=== PATIENT | female | born 1950 | race Caucasian/White ===

== ENCOUNTER → 2021-05-31 | Outpatient (CLI) | payer MEDICARE, MEDICAID ==
[2021-05-31 12:59] LABS: CALCIUM 8.1 mg/dL (8.4-10.2); CREATININE, serum 1.34 mg/dL (0.57-1.11); POTASSIUM 4.4 mmol/L (3.5-4.5)
== END ==
LOC: ZCOL.LAB 12:29
PROVIDERS: Family Medicine
DX: E11.22 Type 2 diabetes mellitus with diabetic chronic kidney disease (principal)

== ENCOUNTER → 2021-07-26 | Outpatient (CLI) | payer MEDICARE, MEDICAID ==
[2021-07-26 12:18] LABS: COLLECTION METHOD CATHETER
[2021-07-26 12:23] LABS: ALBUMIN 2.9 gm/dL (3.4-4.8); BILIRUBIN,TOTAL 0.7 mg/dL (0.2-1.2); CALCIUM 8.4 mg/dL (8.4-10.2); CREATININE, serum 1.25 mg/dL (0.57-1.11); TOTAL PROTEIN 6.7 gm/dL (6.2-8.1)
[2021-07-26 12:24] LABS: MUCOUS Present (NOT PRESENT); PH 5 (5-8); SQUAMOUS EPITHELIAL 0-2 /hpf (0-10); URINE APPEARANCE Cloudy (CLEAR/HAZY); URINE BACTERIA Many /hpf (NONE SEEN); URINE BILIRUBIN Negative (NEGATIVE); URINE BLOOD Negative (NEGATIVE); URINE COLOR Yellow (YELLOW); URINE GLUCOSE Negative (NEGATIVE); URINE KETONE Negative (NEGATIVE); URINE LEUKOCYTE ESTERASE 3+ (NEGATIVE); URINE NITRATE Negative (NEGATIVE); URINE PROTEIN(semi-quant) Negative (NEGATIVE); URINE UROBILINOGEN Negative (NEGATIVE); URINE WBC >50 /hpf (0-2)
== END ==
LOC: ZCOL.LAB 11:51
PROVIDERS: Family Medicine
DX: N11.1 Chronic obstructive pyelonephritis (principal); N39.0 Urinary tract infection, site not specified

== ENCOUNTER 2021-10-10 00:09 | Inpatient (IN) | payer MEDICARE, MEDICAID ==
[~2021-10-10] VITALS: Ht 152.4 cm; Wt 145.6 kg
[2021-10-10] VITALS (7 sets, daily range): BP systolic 119–154; BP diastolic 58–87; PULSE 64–82; TEMP 97.6–98
[2021-10-10 01:31] LABS: BASO % 0.4 % (0.0-2.0); EOS # 0.1 K/mm3 (0.0-0.7); EOS % 0.8 % (0.0-4.0); GRAN # 8.1 K/mm3 (1.4-6.5); GRAN % 84.3 % (42.2-75.2); HEMATOCRIT 35.5 % (37.0-47.0); HEMOGLOBIN 11.3 g/dl (12.5-16.0); LYMPH # 0.7 K/mm3 (1.2-3.4); LYMPH % 7.6 % (20.0-51.0); MEAN CELL VOLUME 90 fl (80.0-100.0); MEAN CORPUSCULAR HEMOGLOBIN 29 pg (27-31); MEAN CORPUSCULAR HGB CONC 32 g/dl (33.0-37.0); MEAN PLATELET VOLUME 10.5 fl (7.4-10.4); MONO # 0.6 K/mm3 (0.1-0.6); MONO % 6.5 % (1.7-9.3); PLATELET COUNT 237 K/mm3 (130-400); RED BLOOD COUNT 3.95 M/mm3 (4.10-5.30); REDCELL DISTRIBUTION WIDTH-CV 12.5 % (11.5-14.5)
[2021-10-10 01:36] LABS: ALBUMIN 2.5 gm/dL (3.4-4.8); BILIRUBIN,TOTAL 0.9 mg/dL (0.2-1.2); CALCIUM 8.5 mg/dL (8.4-10.2); CREATININE, serum 1.46 mg/dL (0.57-1.11); TOTAL PROTEIN 6.4 gm/dL (6.2-8.1)
[2021-10-10 02:11] LABS: C-REACTIVE PROTEIN 4.59 mg/dL (0.00-0.50); CREATINE KINASE 39 U/L (29-168); LACTATE DEHYDROGENASE 158 U/L (125-220); MAGNESIUM 1.6 mg/dL (1.6-2.6)
[2021-10-10 02:21] LABS: INR 1.1 (0.8-3.0); PROTHROMBIN TIME 13.1 SECONDS (9.7-12.8)
[2021-10-10 02:25] LABS: TROPONIN-I < 0.010 ng/mL (0.00-0.033)
[2021-10-10] MEDS ORDERED: ASPIRIN 81M81 MG/TA2 PO (02:44)
[2021-10-10] MEDS ORDERED: CRANBERRY450 MG PO (02:44)
[2021-10-10] MEDS ORDERED: SYNTHROID0.075 MG/T PO (02:45)
[2021-10-10] MEDS ORDERED: LEXAPRO 10MG10 MG PO (02:45)
[2021-10-10] MEDS ORDERED: MACROBID 1100 MG/CAP PO (02:46)
[2021-10-10] MEDS ORDERED: MIRALAX PA17 GM/Dose PO (02:46)
[2021-10-10] MEDS ORDERED: FLOMAX 0.40.4 MG/CAP PO (02:46)
[2021-10-10] MEDS ORDERED: VITAMIN C500 MG PO (02:47)
[2021-10-10] MEDS ORDERED: LANTUS100 U/ML SQ (02:48)
[2021-10-10] MEDS ORDERED: NOVOLOG FLEX100 U/ML SQ ×2 (02:49)
[2021-10-10] MEDS ORDERED: VICTOZA6 MG/ML SQ (02:49)
[2021-10-10] MEDS ORDERED: NYSTATIN POWDER15 GM TOP (02:50)
[2021-10-10] MEDS ORDERED: TYLENOL 325MG325 MG PO (02:50)
[2021-10-10 03:08] LABS: ARTERIAL BLD GAS O2 SATURATION 97.1 % (92-100); ARTERIAL BLD GAS TCO2 CT 25.7; ARTERIAL BLOOD GAS BASE EXCESS -1.4 (-2-2); ARTERIAL BLOOD GAS HCO3 24.3 meq/L (22-26); ARTERIAL BLOOD GAS PO2 100.3 mmHg (80-100); ARTERIAL BLOOD GAS pH 7.35 (7.35-7.45)
--- NOTE | 2021-10-10 07:10 | NUR ---
pt admitted to room 305 per cart from ED, on 2L O2 per NC, unable to assist with transfer to bed, slide board used. purewick placed for urinary incontinence. IVF and doxycycline infusing per PIV in RW, site infiltrated, forearm with +2 edema, site dc'd, new site placed above infiltrate site on 2nd attempt, pt able to answer simple yes no questions, cooperative, no N/V reported at this time. afebrile after tylenol supp given in ED. med rec done using MI paperwork, oriented to room and plan of care.
--- NOTE | 2021-10-10 09:40 | NUR ---
Internal Salesperson contacted patient's daughter, Leonela (ph#[phone]) to discuss discharge planning. Patient lives at [facility] and Leonela advised patient was at [facility] for about 5 years, however due to their low staffing, patient was moved to [facility]. Leonela is unsure who patient's PCP is. Patient does not have Advance Directives and Leonela advised her next of kin are her three children. Leonela, Suyapa Chan, and Dilcia Bryson. Leonela advised she lives in [place], Dilcia lives in [place], and Suyapa is a "junkie" and is unsure how to contact her. Plan will be for patient to return to [facility] at time of discharge. STEPHEN contacted Alexa at [facility] and faxed clinical updates. SW also inquired about DPOA-HC. Discharge Plan: [facility]
--- NOTE | 2021-10-10 10:23 | NUR ---
Alexa at [facility] advised patient does not have Advance Directives.
[2021-10-10 17:06] LABS: COLLECTION METHOD CATHETER
[2021-10-10 17:24] LABS: PH 9 (5-8); URINE APPEARANCE Cloudy (CLEAR/HAZY); URINE BACTERIA None Seen /hpf (NONE SEEN); URINE BLOOD Negative (NEGATIVE); URINE COLOR Yellow (YELLOW); URINE GLUCOSE 3+ (NEGATIVE); URINE KETONE Trace (NEGATIVE); URINE NITRATE Negative (NEGATIVE); URINE PROTEIN(semi-quant) 2+ (NEGATIVE); URINE RBC 20-50 /hpf (0-2); URINE TRIPLE PHOSPHATE CRYSTAL Present (NOT PRESENT); URINE UROBILINOGEN Negative (NEGATIVE)
--- NOTE | 2021-10-10 23:25 | NUR ---
Pt alert and partially oriented. Pt takes time to think and respond to questions, conversations do not always make sense. Pt does not appear interested in education. Follows commands. Pt incontinent of bowel and bladder. Pt does not report any pain at this time, denies pain when asked. Pt denies chest pain/SOB. Pt currently on room air, satting WNL. Pt tolerating PO. Tolerates pills one at a time with water. Pt is unable to make significant independent moves within the bed. Turning pt every 2 hours and providing frequent incontinent care. Shift assessment performed. Medications administered per orders and education provided. VS stable. Pt on room air. Afebrile. Non-productive cough noted. Pt continuing with IV fluids and IV antibx per orders. No significant skin issues noted. Frequently applying barrier cream and powder to prevent wound development. Fall precautions in place. Assessing neuro checks q4hr. Pt does not report any questions at this time. Bed low and locked, call brown within reach. No new concerns at this time.
[2021-10-11 04:04] VITALS: BP 116/47; PULSE 62; TEMP 97.8
--- NOTE | 2021-10-11 05:30 | NUR ---
No adverse events overnight. Pt alert and partially oriented, follows commands. Continuing with IV fluids and IV antibx per orders. Q4 neuro assessments continued. Pt incontinent of bowel and bladder, adequate urine output overnight. VS stable. Satting WNL on room air. Afebrile. Turning q2hr. Providing frequent incontinent care. Pt tolerating PO. Fall precautions in place. Bed low and locked, call brown within reach. Pt does not report any questions at this time, no new concerns at this time.
[2021-10-11 06:54] LABS: BASO % 0.2 % (0.0-2.0); GRAN # 6.6 K/mm3 (1.4-6.5); GRAN % 74.8 % (42.2-75.2); HEMOGLOBIN 11.5 g/dl (12.5-16.0); LYMPH # 1.2 K/mm3 (1.2-3.4); LYMPH % 13.7 % (20.0-51.0); MEAN CELL VOLUME 90 fl (80.0-100.0); MEAN CORPUSCULAR HEMOGLOBIN 29 pg (27-31); MEAN CORPUSCULAR HGB CONC 32 g/dl (33.0-37.0); MEAN PLATELET VOLUME 11.3 fl (7.4-10.4); MONO % 10.8 % (1.7-9.3); PLATELET COUNT 233 K/mm3 (130-400); RED BLOOD COUNT 3.97 M/mm3 (4.10-5.30); REDCELL DISTRIBUTION WIDTH-CV 12.3 % (11.5-14.5)
[2021-10-11 07:11] LABS: ALBUMIN 2.4 gm/dL (3.4-4.8); BILIRUBIN,TOTAL 0.3 mg/dL (0.2-1.2); CALCIUM 8.2 mg/dL (8.4-10.2); CREATININE, serum 1.36 mg/dL (0.57-1.11); HEMATOCRIT 35.7 % (37.0-47.0); TOTAL PROTEIN 6.5 gm/dL (6.2-8.1)
--- NOTE | 2021-10-11 07:45 | NUR ---
PT DOING FINE THIS MORNING, VSS, DENIES COMPLAINTS,ALERT BUT FORGETFUL, SOME CONFUSION NOTED.
[2021-10-11 08:28] VITALS: BP 119/59; PULSE 65; TEMP 98
[2021-10-11 12:00] VITALS: BP 123/65; PULSE 65; TEMP 97.9
--- NOTE | 2021-10-11 15:27 | NUR ---
Assisted Living Coordinator faxed clinical updates to [facility].
[2021-10-11 16:00] VITALS: BP 131/95; PULSE 76; TEMP 98.1
--- NOTE | 2021-10-11 18:18 | NUR ---
PT HAD A FAIR DAY, VSS, ALERT WITH PARTIAL ORIENTATION AND CONFUSION, PT PULLING OFF tele AND IV X2 SINCE MORNING UNABLE TO COMPREHEND MOST OF THE CONVERSATION/FORGETFUL.DUE MEDICATION GIVEN, NO ADVERSE EFFECTS NOTED.COUGHING BUT NO SPUTUM DUE TO PATIENT MENTAL STATUS.
[2021-10-11 19:27] VITALS: BP 109/73; PULSE 70; TEMP 98.4
[2021-10-11 23:17] VITALS: BP 132/88; PULSE 71; TEMP 97.8
--- NOTE | 2021-10-12 01:01 | NUR ---
Pt alert and paritally oriented. Pt takes time to answer questions when asked. Pt able to state name, but states she is at home. Follows commands. Q4 neuro assessments continuing. Pt incontinent of bowel and bladder. Frequent incontinent care provided and pt turned q2hr. Pt denies pain/SOB. Pt had pulled out multiple IV's during dayshift and then pulled out another IV this evening. A new PIV was started in the right AC. Pt continued to attempt to pull the IV out. Pt also continued to pull off the telemetry cords. Pt was educated multiple times on importance/purpose of IV and accepted, but then would attempt to pull the IV out again later on. Pt was given coloring pages and activities for distraction, but the pt would continue to forget and attempt to remove the IV. Soft mits have been placed on the pt's hands to stop the pt from pulling out her IV site. IV fluids and IV antibx continue per orders. No significant skin issues noted. Pt does have some discoloration of the BLE. Shift assessment performed. Medications administered per orders and education provided. binder technician remains on. Fall precautions are in place. VS stable. Pt satting WNL on room air. Afebrile. Pt has a non-productive cough. Tolerating PO. Isolation precautions enforced. Pt does not report any questions at this time. Bed locked and low, call brown within reach. No concerns at this time.
[2021-10-12 03:43] VITALS: BP 149/72; PULSE 58; TEMP 97.4
--- NOTE | 2021-10-12 06:06 | NUR ---
No adverse events overnight. IV fluids and IV antibx continued overnight. Pt alert, partially oriented, follows commands. Soft mitts remain on hands to prevent the pt from pulling out her IV. Adequate urine output overnight. Pt tolerating PO. Frequent nourishment offered. Frequent incontinent care provided and turning pt q2hr. VS stable. On room air. Afebrile. monitor technician on. Fall precautions in place. Bed low and locked, call brown within reach. No new concerns at this time.
[2021-10-12 06:26] LABS: BASO % 0.4 % (0.0-2.0); EOS % 0.1 % (0.0-4.0); GRAN % 69.7 % (42.2-75.2); HEMOGLOBIN 11.5 g/dl (12.5-16.0); LYMPH # 1.7 K/mm3 (1.2-3.4); MEAN CELL VOLUME 90 fl (80.0-100.0); MEAN CORPUSCULAR HEMOGLOBIN 29 pg (27-31); MEAN CORPUSCULAR HGB CONC 32 g/dl (33.0-37.0); MEAN PLATELET VOLUME 11.7 fl (7.4-10.4); MONO # 0.8 K/mm3 (0.1-0.6); MONO % 9.3 % (1.7-9.3); PLATELET COUNT 235 K/mm3 (130-400); RED BLOOD COUNT 3.97 M/mm3 (4.10-5.30); REDCELL DISTRIBUTION WIDTH-CV 12.4 % (11.5-14.5)
[2021-10-12 06:29] LABS: HEMATOCRIT 35.7 % (37.0-47.0)
[2021-10-12 06:45] LABS: ALBUMIN 2.5 gm/dL (3.4-4.8); BILIRUBIN,TOTAL 0.2 mg/dL (0.2-1.2); CALCIUM 8.2 mg/dL (8.4-10.2); CREATININE, serum 1.26 mg/dL (0.57-1.11); POTASSIUM 3.9 mmol/L (3.5-4.5); TOTAL PROTEIN 6.5 gm/dL (6.2-8.1)
[2021-10-12 08:10] VITALS: BP 154/84; PULSE 70; TEMP 97.2
--- NOTE | 2021-10-12 11:23 | NUR ---
STEPHEN contacted [facility] for pick out hand and they advised STEPHEN that they did not have transportation today. To call back tomorrow.
[2021-10-12 11:58] VITALS: BP 154/60; PULSE 60; TEMP 97.5
--- NOTE | 2021-10-12 13:26 | NUR ---
PATIENT ON TELE tachycardia of 140b/min noted, pt denies any complaints, no and sign and symptoms noted, pt sitting on bed and taking her lunch during this time. Dr Paula notified of the findings, metoprolol 5mg iv prescribed and EKG ordered. before metoprolol was administered PULSE was noted to be within 70-75 dr valiente was notified of the new findings, and said to hold the metoprolol until the EKG was done. metoprolol not administered at this time.
[2021-10-12 16:30] VITALS: BP 144/58; PULSE 63; TEMP 97.9
--- NOTE | 2021-10-12 17:44 | NUR ---
pt had a good day, vs stable, no adverse reaction noted, alert with some partial disorientation, tachycardia noted around mid day but now resolved.ekg done.due medication given as prescribed denies any complaints.
[2021-10-12 20:18] VITALS: BP 150/59; PULSE 59; TEMP 97.2
[2021-10-13] VITALS (7 sets, daily range): BP systolic 128–157; BP diastolic 40–74; PULSE 55–64; TEMP 97.2–97.8
--- NOTE | 2021-10-13 00:53 | NUR ---
Pt alert, partially oriented. States she thinks she is at an apartment. Pt has soft mitts applied to the hands. Pt continues to attempt to pull of mitts and pull out her IV. Educated pt on purpose and importance of the IV and IV fluids. Providing frequent nourishment to pt. Pt voiding adequately, incontinent of bowel and bladder. Pt's bottom is slightly reddened. Barrier cream applied, pt turned q2hr, and frequent incontinent care provided. Pt denies pain at this time. On room air. Afebrile. BP stable. HR currently in the upper 50's-60's. Non-productive cough noted. Pt calm and follows commands. Tolerates PO. Q4 neuro assessments continuing. Shift assessment performed. Medications administered per orders and education provided. Fall precautions in place. Isolation precautions enforced. IV fluids and IV antibx continuing per orders. Pt does not report any questions at this time. Bed low and locked, call brown within reach. No new concerns at this time.
[2021-10-13 06:27] LABS: BASO % 0.1 % (0.0-2.0); GRAN # 6.9 K/mm3 (1.4-6.5); GRAN % 73.8 % (42.2-75.2); HEMOGLOBIN 11.3 g/dl (12.5-16.0); LYMPH # 1.6 K/mm3 (1.2-3.4); LYMPH % 17.5 % (20.0-51.0); MEAN CELL VOLUME 89 fl (80.0-100.0); MEAN CORPUSCULAR HEMOGLOBIN 29 pg (27-31); MEAN CORPUSCULAR HGB CONC 32 g/dl (33.0-37.0); MEAN PLATELET VOLUME 11.3 fl (7.4-10.4); MONO # 0.7 K/mm3 (0.1-0.6); MONO % 7.9 % (1.7-9.3); PLATELET COUNT 221 K/mm3 (130-400); RED BLOOD COUNT 3.94 M/mm3 (4.10-5.30); REDCELL DISTRIBUTION WIDTH-CV 12.2 % (11.5-14.5)
[2021-10-13 06:37] LABS: HEMATOCRIT 35.1 % (37.0-47.0)
[2021-10-13 06:44] LABS: ALBUMIN 2.4 gm/dL (3.4-4.8); BILIRUBIN,TOTAL 0.2 mg/dL (0.2-1.2); CALCIUM 8.1 mg/dL (8.4-10.2); CREATININE, serum 1.13 mg/dL (0.57-1.11); POTASSIUM 3.9 mmol/L (3.5-4.5); TOTAL PROTEIN 6.2 gm/dL (6.2-8.1)
--- NOTE | 2021-10-13 07:19 | NUR ---
No adverse events overnight. Pt alert and paritally oriented. On room air. Afebrile. Incontinent of bowel and bladder. Adequte urine output overnight. Frequent incontinent care provided, turning pt Q2hr. Neuro checks assessed. IV fluids and IV antibx continued overnight. Pt has soft mitts on hands, frequent nourishment offered. Tolerating PO. Bed low and locked, call brown within reach. No concerns at this time.
--- NOTE | 2021-10-13 07:58 | NUR ---
PT SLEEPING DURING THE BEDSIDE REPORT.
--- NOTE | 2021-10-13 18:21 | NUR ---
pt had a calm day, alert with disortation, due meds given, no adverse reaction noted. vs stable, with a puric draining clear urine.ivf discontinued today.
--- NOTE | 2021-10-13 20:30 | NUR ---
Initial shift assessment done- confused, has been resting, now would like a sandwich- Tele on, Purewick on- draining rick urine, mittens on so not pulling at IV site-- pleasant,cooperative, VSS
[2021-10-14 03:49] VITALS: BP 157/85; PULSE 71; TEMP 97.5
--- NOTE | 2021-10-14 06:00 | NUR ---
Did sleep ok last night- VSS, Did have total bed change during the night when Purewick became disconnected- new Purewick applied, working well, O2 sats 99% RA,
[2021-10-14 06:52] LABS: BASO % 0.2 % (0.0-2.0); EOS % 0.2 % (0.0-4.0); GRAN # 7.4 K/mm3 (1.4-6.5); HEMOGLOBIN 11.8 g/dl (12.5-16.0); LYMPH # 2.3 K/mm3 (1.2-3.4); LYMPH % 21.4 % (20.0-51.0); MEAN CELL VOLUME 88 fl (80.0-100.0); MEAN CORPUSCULAR HEMOGLOBIN 29 pg (27-31); MEAN CORPUSCULAR HGB CONC 33 g/dl (33.0-37.0); MEAN PLATELET VOLUME 11.1 fl (7.4-10.4); MONO # 0.8 K/mm3 (0.1-0.6); MONO % 7.9 % (1.7-9.3); PLATELET COUNT 233 K/mm3 (130-400); REDCELL DISTRIBUTION WIDTH-CV 12.3 % (11.5-14.5)
[2021-10-14 06:57] LABS: HEMATOCRIT 36.1 % (37.0-47.0)
[2021-10-14 07:11] LABS: ALBUMIN 2.5 gm/dL (3.4-4.8); BILIRUBIN,TOTAL 0.3 mg/dL (0.2-1.2); CALCIUM 8.2 mg/dL (8.4-10.2); CREATININE, serum 1.15 mg/dL (0.57-1.11); POTASSIUM 3.9 mmol/L (3.5-4.5); TOTAL PROTEIN 6.5 gm/dL (6.2-8.1)
[2021-10-14 07:52] VITALS: BP 152/53; PULSE 57; TEMP 97.9
[2021-10-14] MEDS ORDERED: DECADRON6 MG PO (08:09)
[2021-10-14] MEDS ORDERED: DOXYCYCLINE HY100 MG PO (08:14)
[2021-10-14] MEDS ORDERED: OMNICEF 300MG300 MG PO (08:15)
--- NOTE | 2021-10-14 10:55 | NUR ---
Shift assessment preformed. Scheduled medications given. VSS. Patient Alert but only paritially oriented. Patient denies any pain, discomfort, SOA, or further needs at this time. Call light in reach. Fall precautions in place.
[2021-10-14 11:17] VITALS: BP 121/94; PULSE 71; TEMP 97.7
--- NOTE | 2021-10-14 11:38 | NUR ---
The hospitalist is ready to discharge the patient today. STEPHEN notified Alexa at [facility]. [facility] requests LTC orders and they set up transportation for 1300. STEPHEN notified the hospitalist, RN, and the patient's daughter (Leonela). Leonela is in agreement to the plan. STEPHEN read the IM form outloud to Leonela over the phone. Leonela verbalized understanding and of agreement to discharge today. She gave STEPHEN approval to sign the form on her behalf. The patient is to discharge today, 10/14, back to [facility] for long-term care. No additional needs at this time.
[2021-10-14 12:40] VITALS: BP 121/94; PULSE 71; TEMP 97.7
--- NOTE | 2021-10-14 13:37 | NUR ---
Alexa, at [facility], reports that the special wheelchair they would use to transport the patient, does not fit in the van they have. They are requesting an ambulance transfer. STEPHEN updated the patient's daughter, Leonela. Leonela is in agreement to this and gave STEPHEN approval to sign the EMS consent form on her behalf. [facility] transport was set up at 1400. STEPHEN updated the RN.
--- NOTE | 2021-10-14 14:24 | NUR ---
Patient deemed fit for discharge back to [facility]. IV DC'd, catheter intact, no signs of phlebitis. VSS. Patient Alert, but only partially oriented. Remainder of neuro assessment WNL. Patient denies any pain, discomfort, SOA, or further needs at this time. Patient escorted from [facility] by EMS, report called to RN at [facility].
== END 2021-10-14 14:26 | DRG 177 ==
LOC: COL.ER 00:09 → MEDICAL 01:49
PROVIDERS: Emergency Medicine; Nurse Practitioner Family; ADMIT Internal Medicine
PROC: XW033E5 Introduction of Remdesivir Anti-infective into Peripheral Vein, Percutaneous Approach, New Technology Group 5 (ICD-10-PCS; principal; 2021-10-10)
DX: U07.1 COVID-19 (principal); J12.82 Pneumonia due to coronavirus disease 2019; J96.01 Acute respiratory failure with hypoxia; G93.40 Encephalopathy, unspecified; N11.1 Chronic obstructive pyelonephritis; N18.4 Chronic kidney disease, stage 4 (severe); E87.2 Acidosis; N17.9 Acute kidney failure, unspecified; Z68.44 Body mass index [BMI] 60.0-69.9, adult; I12.9 Hypertensive chronic kidney disease with stage 1 through stage 4 chronic kidney disease, or unspecified chronic kidney disease; E11.22 Type 2 diabetes mellitus with diabetic chronic kidney disease; E66.01 Morbid (severe) obesity due to excess calories; F32.A Depression, unspecified; F41.9 Anxiety disorder, unspecified; D64.9 Anemia, unspecified; F70 Mild intellectual disabilities; I48.91 Unspecified atrial fibrillation; E03.9 Hypothyroidism, unspecified; Z87.440 Personal history of urinary (tract) infections; Z87.442 Personal history of urinary calculi; Z79.890 Hormone replacement therapy; Z79.4 Long term (current) use of insulin; Z79.82 Long term (current) use of aspirin
CPT/HCPCS: J0248; J0696; J1100; J1650; J1815; J2405; J7030; J7040; J7050; J8540; Q9967

== ENCOUNTER 2021-11-18 19:01 | Emergency (ER) | payer MEDICARE, MEDICAID ==
[~2021-11-18] VITALS: Ht 165.1 cm; Wt 181.8 kg
[~2021-11-18 19:01] MED LIST: ASPIRIN 81M81 MG/TA2 PO; CRANBERRY450 MG PO; DECADRON6 MG PO; DOXYCYCLINE HY100 MG PO; FLOMAX 0.40.4 MG/CAP PO; LANTUS100 U/ML SQ; LEXAPRO 10MG10 MG PO; MACROBID 1100 MG/CAP PO; MIRALAX PA17 GM/Dose PO; NOVOLOG FLEX100 U/ML SQ; NYSTATIN POWDER15 GM TOP; OMNICEF 300MG300 MG PO; SYNTHROID0.075 MG/T PO; TYLENOL 325MG325 MG PO; VICTOZA6 MG/ML SQ; VITAMIN C500 MG PO
[2021-11-18] MEDS ORDERED: AMOXICILLIN 8751 TAB PO (21:29)
[2021-11-18 22:09] VITALS: BP 131/86; PULSE 69; TEMP 97.6
== END 2021-11-18 22:09 | disposition home or self-care (01) ==
LOC: COL.ER 19:01
DX: S92.512A Displaced fracture of proximal phalanx of left lesser toe(s), initial encounter for closed fracture (principal); E66.01 Morbid (severe) obesity due to excess calories; Z23 Encounter for immunization; Z68.44 Body mass index [BMI] 60.0-69.9, adult; X50.1XXA Overexertion from prolonged static or awkward postures, initial encounter; Y92.129 Unspecified place in nursing home as the place of occurrence of the external cause

== ENCOUNTER → 2021-11-25 | Outpatient (CLI) | payer MEDICARE, MEDICAID ==
[~2021-11-25] MED LIST changes: +AMOXICILLIN 8751 TAB PO
[2021-11-25 15:05] LABS: CALCIUM 8.6 mg/dL (8.4-10.2); CREATININE, serum 1.42 mg/dL (0.57-1.11); POTASSIUM 4.7 mmol/L (3.5-4.5)
== END ==
LOC: ZCOL.LAB 14:18
PROVIDERS: Family Medicine
DX: E78.2 Mixed hyperlipidemia (principal)

== ENCOUNTER 2022-04-30 11:37 | Inpatient (IN) | payer MEDICARE, MEDICAID ==
[2022-04-30] VITALS (438 sets, daily range): BP systolic 110–143; BP diastolic 75–89; PULSE 85–101; TEMP 98; O2SAT 91–99
[~2022-04-30] VITALS: Ht 167.6 cm; Wt 159.0 kg
[~2022-04-30 11:37] MED LIST changes: -LEXAPRO 10MG10 MG PO; +LEXAPRO20 MG PO
[2022-04-30 12:10] LABS: HEMATOCRIT 41.6 % (37.0-47.0); HEMOGLOBIN 13.7 g/dl (12.5-16.0); MEAN CELL VOLUME 88 fl (80.0-100.0); MEAN CORPUSCULAR HEMOGLOBIN 29 pg (27-31); MEAN CORPUSCULAR HGB CONC 33 g/dl (33.0-37.0); PLATELET COUNT 273 K/mm3 (130-400); RED BLOOD COUNT 4.75 M/mm3 (4.10-5.30); REDCELL DISTRIBUTION WIDTH-CV 13.4 % (11.5-14.5)
[2022-04-30 12:14] LABS: ARTERIAL BLD GAS O2 SATURATION 98.6 % (92-100); ARTERIAL BLD GAS TCO2 CT 23.3; ARTERIAL BLOOD GAS BASE EXCESS -1.7 (-2-2); ARTERIAL BLOOD GAS HCO3 22.3 meq/L (22-26); ARTERIAL BLOOD GAS PCO2 35.5 mmHg (35-45); ARTERIAL BLOOD GAS pH 7.42 (7.35-7.45)
[2022-04-30 12:16] LABS: ARTERIAL BLOOD GAS PO2 127.9 mmHg (80-100)
[2022-04-30 12:24] LABS: ALANINE AMINOTRANSFERASE 18 U/L (0-55); ALBUMIN 2.8 gm/dL (3.4-4.8); ALKALINE PHOSPHATASE 109 U/L (40-150); ANION GAP 11 mmol/L (7-16); AST,SGOT 24 U/L (5-34); BILIRUBIN,TOTAL 1.5 mg/dL (0.2-1.2); BLOOD UREA NITROGEN 25 mg/dL (10-20); CALCIUM 9.4 mg/dL (8.4-10.2); CARBON DIOXIDE 23 mmol/L (23-31); CHLORIDE 104 mmol/L (98-107); CREATININE, serum 1.38 mg/dL (0.57-1.11); GLUCOSE 361 mg/dL (70-99); POTASSIUM 4.4 mmol/L (3.5-4.5); SODIUM 138 mmol/L (136-145); TOTAL PROTEIN 7.5 gm/dL (6.2-8.1)
[2022-04-30] MEDS ORDERED: VICTOZA6 MG/ML SQ (12:24)
[2022-04-30] MEDS ORDERED: LANTUS SOLOS100 U/ML SQ (12:27)
[2022-04-30] MEDS ORDERED: ZOSYN 3 GM-0.371 PD1 IV (12:29)
[2022-04-30 12:32] LABS: TROPONIN-I < 0.010 ng/mL (0.00-0.033)
[2022-04-30 13:05] LABS: BAND 28 % (0-10); LYMPHOCYTE 4 % (20.0-51.0); NEUTROPHILS 63 % (42.0-75.2)
[2022-04-30 13:06] LABS: PLATELET ESTIMATE NORMAL (NORMAL)
--- NOTE | 2022-04-30 14:00 | NUR ---
Arrived to the unit from ED. Patient awake and alert, but does not respond verbally or follow any verbal commands from staff. Patient 99% on 15L oxymask. O2 reduced to 12L and RT notified. Audible upper airway gurgling noted and patient not following commands to cough. RT at bedside to assist with suctioning and able to bring up copious amounts of yellow secretions. 02 able to be further reduced to 6L after suctioning. HR low 100's and appears to be in sinus rhythm. Hospitalist notified of arrival.
[2022-04-30 19:01] LABS: COLLECTION METHOD CLEAN CATCH
[2022-04-30 19:35] LABS: URINE APPEARANCE Cloudy (CLEAR/HAZY); URINE COLOR Yellow (YELLOW)
[2022-04-30 19:36] LABS: URINE BLOOD TRACE-INTACT (NEGATIVE); URINE GLUCOSE 2+ (NEGATIVE); URINE KETONE Negative (NEGATIVE); URINE NITRATE Positive (NEGATIVE); URINE PROTEIN(semi-quant) 3+ (NEGATIVE); URINE UROBILINOGEN 0.2 E.U/dL (0.2-1.0)
[2022-04-30 19:45] LABS: MUCOUS Present (NOT PRESENT); URINE BACTERIA Occasional /hpf (NONE SEEN)
[2022-05-01] VITALS (775 sets, daily range): BP systolic 112–147; BP diastolic 37–85; PULSE 73–103; TEMP 97.7–100; O2SAT 63–99
[2022-05-01 05:40] LABS: BASO # 0.1 K/mm3 (0.0-0.2); BASO % 0.5 % (0.0-2.0); EOS # 0.1 K/mm3 (0.0-0.7); EOS % 0.5 % (0.0-4.0); GRAN % 78.8 % (42.2-75.2); LYMPH # 1.7 K/mm3 (1.2-3.4); MEAN CELL VOLUME 89 fl (80.0-100.0); MEAN CORPUSCULAR HGB CONC 32 g/dl (33.0-37.0); MEAN PLATELET VOLUME 10.5 fl (7.4-10.4); MONO # 0.9 K/mm3 (0.1-0.6); MONO % 6.9 % (1.7-9.3); PLATELET COUNT 213 K/mm3 (130-400); RED BLOOD COUNT 3.94 M/mm3 (4.10-5.30); REDCELL DISTRIBUTION WIDTH-CV 13.8 % (11.5-14.5)
[2022-05-01 06:03] LABS: HEMATOCRIT 35.1 % (37.0-47.0); MEAN CORPUSCULAR HEMOGLOBIN 29 pg (27-31)
[2022-05-01 06:04] LABS: HEMOGLOBIN 11.3 g/dl (12.5-16.0)
[2022-05-01 06:05] LABS: CALCIUM 8.3 mg/dL (8.4-10.2); CREATININE, serum 1.56 mg/dL (0.57-1.11); POTASSIUM 3.6 mmol/L (3.5-4.5)
--- NOTE | 2022-05-01 11:09 | NUR ---
BEDSIDE REPORT RECEIVED FROM DEEPTI MUELLER AT 0700. PT RESTING IN BED AT THIS TIME, VSS, O2 SAT 95% ON ROOM AIR. PT IS ALERT BUT DOES NOT SPEAK WHEN ASKED QUESTIONS, ONLY SHAKES HEAD YES OR NO. FLUIDS INFUSING ORDERED TO R UPPER ARM PICC. BED ALARM ON FOR PT SAFETY, CALL LIGHT IN REACH. SPOKE W/ NURSE FROM [facility] AT 1000. PER HER REPORT PT IS USUALLY ALERT BUT CONFUSED, DOES SPEAK AND IS ABLE TO CONVEY BASIC NEEDS BUT DOESN'T USUALLY TALK TO PEOPLE UNLESS THEY ARE KNOWN TO HER.
--- NOTE | 2022-05-01 16:23 | NUR ---
skid worker spoke with daughter, Leonela Day, who states that she has a sister in [place] and one in [place]. Leonela states that she does not have a car to drive to [place] at this time. Leonela confirms that patient has not completed a durable power of senior trial attorney for health care. Leonela confirms that patient will return to [facility] at [facility]. Worker confirmed with Dwayne at [facility] that will accept patient back upon discharge. Worker provided [facility] with clinical updates.
--- NOTE | 2022-05-01 17:19 | NUR ---
Pt just arrived to the floor from ICU. Pt is alert, does not verbally answer any questions. When I asked her if she wanted something to drink, she just shook her head no. Tried getting her temperature orally, but she would not open her mouth. Pt does have a stage 2 open area to her right gluteal fold approximately benjamin in size. Bed alarm on
--- NOTE | 2022-05-01 17:40 | NUR ---
PT REMAINED STABLE THROUGHOUT AFTERNOON, O2 SAT 93-97% ON ROOM AIR. PT STARTED TO SPEAK AND ANSWER QUESTIONS DAY WENT ON, PT ABLE TO STATE NAME AND BIRTHDAY BUT OTHERWISE CONFUSED. PT OFFERED WATER AND FOOD BUT REFUSED. JONES CATHETER PLACED PT IS CONSTANTLY INCONTINENT AND ALREADY HAS STAGE II ULCER TO R BUTTOCK. PT REPOSITIONED Q2 HRS AND BARRIER CREAM APPLIED. PT TRANSFERRED TO SURGICAL FLOOR VIA BED AT 1657. REPORT GIVEN TO DEEPTI CONTRERAS.
--- NOTE | 2022-05-01 23:41 | NUR ---
PATIENT IS AOX3-4, WITH DELAYED RESPONSES AND SHAKES HER HEAD YES OR NO FOR ANSWERS. PICC IN RIGHT ARM FLUSHES AND HAS BLOOD RETURN. JONES WITH CLEAR/YELLOW OUTPUT. CONTINUES ON ZOSYN. HAS A STAGE TWO SORE TO HER RIGHT BUTTOCK, SHE DID NOT WANT TO TURN FOR THIS NURSE TO APPLY A DRESSING, WILL TRY AFTER SHE WAKES UP IN THE MORNING. SHE IS BEDREST. HERE FROM [facility]. BLOOD GLUCOSE 204. HAS NOTABLE CRACKLES IN BILATERAL LOBES, SUCTIONING HOOKED UP. CALL LIGHT IN REACH. BED IN LOWEST POSITION. BED ALARM ACTIVATED.
[2022-05-02 03:44] VITALS: BP 132/57; PULSE 73; TEMP 98.3
[2022-05-02 05:21] LABS: BASO # 0.1 K/mm3 (0.0-0.2); BASO % 0.8 % (0.0-2.0); EOS # 0.3 K/mm3 (0.0-0.7); EOS % 3.2 % (0.0-4.0); GRAN # 6.3 K/mm3 (1.4-6.5); GRAN % 73.4 % (42.2-75.2); HEMOGLOBIN 11.3 g/dl (12.5-16.0); LYMPH # 1.3 K/mm3 (1.2-3.4); MEAN CELL VOLUME 90 fl (80.0-100.0); MEAN CORPUSCULAR HEMOGLOBIN 29 pg (27-31); MEAN CORPUSCULAR HGB CONC 32 g/dl (33.0-37.0); MEAN PLATELET VOLUME 10.6 fl (7.4-10.4); MONO # 0.6 K/mm3 (0.1-0.6); MONO % 7.2 % (1.7-9.3); PLATELET COUNT 220 K/mm3 (130-400); RED BLOOD COUNT 3.96 M/mm3 (4.10-5.30); REDCELL DISTRIBUTION WIDTH-CV 13.9 % (11.5-14.5)
[2022-05-02 05:32] LABS: CALCIUM 8.3 mg/dL (8.4-10.2); CREATININE, serum 1.75 mg/dL (0.57-1.11); POTASSIUM 3.9 mmol/L (3.5-4.5)
[2022-05-02 05:40] LABS: HEMATOCRIT 35.5 % (37.0-47.0)
--- NOTE | 2022-05-02 06:45 | NUR ---
0645 recived report from primary day shift nurse, DEEPTI Muñiz . This [employer] student nurse discussed plan of care and care coordination with primary dayshift nurse, DEEPTI Muñiz.
--- NOTE | 2022-05-02 07:20 | NUR ---
0720 Assessment completed (see shift assessment for details). Patient declined pain at this time. Discussed plan of care, patient agreeable. All questions answered. Call light within reach. Will contine to monitor.
[2022-05-02 07:43] VITALS: BP 123/86; PULSE 96; TEMP 98.4
[2022-05-02 11:23] VITALS: BP 148/79; PULSE 93; TEMP 97.8
--- NOTE | 2022-05-02 12:00 | NUR ---
Notified [facility] consult
--- NOTE | 2022-05-02 12:38 | NUR ---
Dustless Operator faxed clinical updates to [facility]. SW also requested PT/OT orders.
--- NOTE | 2022-05-02 13:20 | NUR ---
Notified primary nurse, DEEPTI Muñiz of patient's blood pressure (refer to flow sheet).
[2022-05-02 16:01] VITALS: BP 157/106; PULSE 75; TEMP 98.6
[2022-05-02 19:26] VITALS: BP 154/66; PULSE 99; TEMP 99.1
[2022-05-02 23:39] VITALS: BP 166/74; PULSE 99; TEMP 99.3
--- NOTE | 2022-05-02 23:48 | NUR ---
Pt in bed during shift assessment around 2129. Alert but not responsive to any question besides moving her head for yes or no answers. PATSY PICC line is CDI. Fluids running at this time. Folley is in place with yellow and cloudy urine in bag. All medications given per emar. Pt denies any pain when asked. Inner dry in place under breast and panus. Belongings and call light are within reach.
[2022-05-03] VITALS (7 sets, daily range): BP systolic 150–168; BP diastolic 50–82; PULSE 65–96; TEMP 98.5–99.2
--- NOTE | 2022-05-03 16:18 | NUR ---
Clinical updates faxed to [facility].
--- NOTE | 2022-05-03 21:00 | NUR ---
PT IN BED, TURNED WITH ASSIST OF PCT TO ASSESS COCCYX, HAS MEPILEX IN PLACE, SMEAR OF STOOL, LINENS CHANGED AND PT PULLED UP IN BED. PT DOES NOT VERBALIZE BUT IS ALERT. HAS RT PICC WITH IVF INFUSING. REPLACED INTERDRY TO ABD FOLDS AND UNDER BREASTS. NO REDNESS NOTED. DOES HAVE A BLISTER UNDER RT ABD FOLD AND ONE BLISTER TO UPPER THIGH. HAS 1 BLISTER TO RLE. JONES CARES PROVIDED, YELLOW URINE IN DRAINAGE BAG. HAS BLE EDEMA, WITH DISCOLORATION PRESENT. PT WITH INSP/EXP WHEEZES. IS NPO.
[2022-05-04 04:30] VITALS: BP 146/58; PULSE 64; TEMP 98.7
--- NOTE | 2022-05-04 06:01 | NUR ---
PT HAS RESTED THIS SHIFT. REMAINS ON ROOM AIR. LABS DRAWN FROM RT PICC. GOOD URINE OUTPUT.
[2022-05-04 07:31] VITALS: BP 147/55; PULSE 64; TEMP 98.2
[2022-05-04 08:49] LABS: CALCIUM 8.2 mg/dL (8.4-10.2); CREATININE, serum 1.9 mg/dL (0.57-1.11); POTASSIUM 3.6 mmol/L (3.5-4.5)
[2022-05-04 11:15] LABS: ARTERIAL BLD GAS O2 SATURATION 93.9 % (92-100); ARTERIAL BLD GAS TCO2 CT 27.6; ARTERIAL BLOOD GAS BASE EXCESS 2.9 (-2-2); ARTERIAL BLOOD GAS HCO3 26.5 meq/L (22-26); ARTERIAL BLOOD GAS PCO2 37.1 mmHg (35-45); ARTERIAL BLOOD GAS PO2 66.9 mmHg (80-100); ARTERIAL BLOOD GAS pH 7.47 (7.35-7.45)
[2022-05-04 11:57] VITALS: BP 145/70; PULSE 66; TEMP 98.1
[2022-05-04 16:07] VITALS: BP 146/82; PULSE 54; TEMP 98.3
[2022-05-04 19:31] VITALS: BP 168/60; PULSE 54; TEMP 98.3
--- NOTE | 2022-05-04 20:30 | NUR ---
PT GIVEN SPONGE BATH AND INTERDRY CHANGED UNDER PANNUS. STILL HAS THE 2 BLISTERS TO RT PANNUS. JONES PATENT WITH YELLOW URINE. PICC TO PATSY INTACT WITH GOOD BLOOD RETURN. PT ASKS FOR WATER, DOES NOT UNDERSTAND NPO STATUS. LUNGS SOUND IMPROVED TONIGHT THAN LAST NIGHT, NO LONGER ON IVF. BLE DISCOLORATION R/T PVD. PT DENIES BEING ABLE TO WALK AND REPORTS USING A W/C IN THE JAIL.
[2022-05-05 00:16] VITALS: BP 151/56; PULSE 56; TEMP 97.4
--- NOTE | 2022-05-05 00:30 | NUR ---
PT YELLS OUT FOR WATER. AGAIN ATTEMPTED ORIENTATION OF NPO STATUS. PT WATCHING TV.
[2022-05-05 04:35] VITALS: BP 129/44; PULSE 61; TEMP 97.5
--- NOTE | 2022-05-05 06:00 | NUR ---
LABS DRAWN FROM RT PICC. IV ANTIBIOTIC CONTINUES.
[2022-05-05 06:37] LABS: POTASSIUM 3.3 mmol/L (3.5-4.5)
[2022-05-05 07:26] VITALS: BP 142/88; PULSE 62; TEMP 98
--- NOTE | 2022-05-05 08:03 | NUR ---
Pt assessment complete. Pt is sitting up in bed upon entry, she is alert and partially oriented. She knows she is in a hospital and knows who she is. Pt requesting water. Discussed with her for plan of speech to see her before eating and drinking. Pt forgetful and continues to ask. Denies any pain. No SOB. She does have a wet cough. Vinicius MORILLO. No needs at this time. Call light within reach.
[2022-05-05 08:19] LABS: BASO % 0.7 % (0.0-2.0); EOS # 0.2 K/mm3 (0.0-0.7); EOS % 3.4 % (0.0-4.0); GRAN # 3.4 K/mm3 (1.4-6.5); GRAN % 55.2 % (42.2-75.2); HEMATOCRIT 38.2 % (37.0-47.0); HEMOGLOBIN 12.1 g/dl (12.5-16.0); LYMPH # 1.9 K/mm3 (1.2-3.4); LYMPH % 30.9 % (20.0-51.0); MEAN CELL VOLUME 89 fl (80.0-100.0); MEAN CORPUSCULAR HEMOGLOBIN 28 pg (27-31); MEAN CORPUSCULAR HGB CONC 32 g/dl (33.0-37.0); MEAN PLATELET VOLUME 11.2 fl (7.4-10.4); MONO # 0.6 K/mm3 (0.1-0.6); MONO % 9.3 % (1.7-9.3); PLATELET COUNT 222 K/mm3 (130-400); REDCELL DISTRIBUTION WIDTH-CV 13.5 % (11.5-14.5)
[2022-05-05 08:52] LABS: CALCIUM 8.5 mg/dL (8.4-10.2); CREATININE, serum 1.99 mg/dL (0.57-1.11)
[2022-05-05 12:22] VITALS: BP 151/81; PULSE 57; TEMP 97.8
[2022-05-05 16:27] VITALS: BP 136/90; PULSE 67; TEMP 98
--- NOTE | 2022-05-05 18:51 | NUR ---
Pt remained alert through the day, but confused. No pain present. Had three loose very large BM's, PRN immodium administered. On RAAlicia Colvin DD. Call light within reach.
[2022-05-05 19:51] VITALS: BP 139/99; PULSE 73; TEMP 97.8
--- NOTE | 2022-05-05 20:30 | NUR ---
PT IN BED, HAS PICC LINE MICHELET WRAP OFF. REPLACED WRAP, IV ANTIBIOTIC INFUSING WITHOUT PROBLEM. PT IS ORIENTED TO SELF, THINKS SHE IS AT [facility]. IS EATING GENERAL DIET WITHOUT PROBLEM. JONES TO BSD WITH YELLOW URINE. RT ABD PANNUS HAS BLISTERS X2, STILL INTACT. INTERDRY IN FOLD. RT ABD WITH ABRASION. RT BUTTOCK CREASE WITH STAGE 2 PEA SIZE OPENING. COCCYX INTACT, REDDENED. BLE WITH DISCOLORATION AND RT LOWER LEG WITH OLD BLISTER THAT HAS POPPED.
--- NOTE | 2022-05-06 | NUR ---
PT REMAINS AWAKE, TELEMETRY SR. PICC LINE DRSG INTACT.
[2022-05-06 00:20] VITALS: BP 138/80; PULSE 65; TEMP 98
--- NOTE | 2022-05-06 04:00 | NUR ---
PT REMOVED HER PICC LINE, ENTIRE CATHETER REMOVED, PLACED OCCLUSIVE DRSG TO PATSY.
[2022-05-06 04:28] VITALS: BP 129/77; PULSE 69; TEMP 97.8
--- NOTE | 2022-05-06 04:30 | NUR ---
REPORTED PT REMOVAL OF PICC LINE TO SHONNA GONZALEZ. OKAY TO LEAVE IV OUT D/T DIFFICULT STICK AND POTENTIAL FOR DC BACK TO [facility] TODAY.
[2022-05-06 06:50] LABS: HEMOGLOBIN 12.4 g/dl (12.5-16.0); MEAN CELL VOLUME 88 fl (80.0-100.0); MEAN CORPUSCULAR HEMOGLOBIN 29 pg (27-31); MEAN CORPUSCULAR HGB CONC 33 g/dl (33.0-37.0); MEAN PLATELET VOLUME 10.3 fl (7.4-10.4); PLATELET COUNT 215 K/mm3 (130-400); RED BLOOD COUNT 4.34 M/mm3 (4.10-5.30); REDCELL DISTRIBUTION WIDTH-CV 13.2 % (11.5-14.5)
[2022-05-06 07:01] LABS: CALCIUM 8.1 mg/dL (8.4-10.2); CREATININE, serum 2.19 mg/dL (0.57-1.11); POTASSIUM 3.3 mmol/L (3.5-4.5)
[2022-05-06 07:26] VITALS: BP 151/68; PULSE 61; TEMP 97.6
[2022-05-06] MEDS ORDERED: ELIQUIS 5MG PO (08:55)
[2022-05-06] MEDS ORDERED: PACERONE400 MG PO (08:56)
--- NOTE | 2022-05-06 09:30 | NUR ---
Pt doing okay this morning. She did have a good breakfast. Took morning medications without difficulty. Pt not having any complaints of pain. Informed her that the plan would be for her to go back to [facility]. Inter dry to pannus. Avvelyn dressing to right buttock, will change prior to her leaving. Total bed bath given and hair washes with cap.
[2022-05-06 09:33] LABS: BAND 11 % (0-10); EOSINOPHIL 2 % (0-4); LYMPHOCYTE 23 % (20.0-51.0); NEUTROPHILS 61 % (42.0-75.2); PLATELET ESTIMATE NORMAL (NORMAL)
--- NOTE | 2022-05-06 11:21 | NUR ---
The patient is to discharge today, 05/06, back to [facility] for long-term care. Transportation provided by [facility]. SW contacted and updated the patient's daughter, Leonela. Leonela is in agreement to the plan. No additional needs at this time.
[2022-05-06 12:09] VITALS: BP 122/61; PULSE 86; TEMP 98.3
--- NOTE | 2022-05-06 13:53 | NUR ---
Pt transferred to EMS cart x4 assist and slide board. Pt did well. Report called to nurse Bette Brar took report.
== END 2022-05-06 13:54 | DRG 871 ==
LOC: COL.ER 11:37 → SURG 13:06 → ICU 13:06 → SURG 05-01 17:06
PROVIDERS: Emergency Medicine; Internal Medicine; Physician Assistant; ADMIT Student in an Organized Health Care Education/Training Program
PROC: 02HV33Z Insertion of Infusion Device into Superior Vena Cava, Percutaneous Approach (ICD-10-PCS; principal; 2022-04-30)
DX: A41.9 Sepsis, unspecified organism (principal); G93.41 Metabolic encephalopathy; J96.01 Acute respiratory failure with hypoxia; N11.1 Chronic obstructive pyelonephritis; N17.9 Acute kidney failure, unspecified; I13.0 Hypertensive heart and chronic kidney disease with heart failure and stage 1 through stage 4 chronic kidney disease, or unspecified chronic kidney disease; Z68.41 Body mass index [BMI] 40.0-44.9, adult; E03.9 Hypothyroidism, unspecified; E11.22 Type 2 diabetes mellitus with diabetic chronic kidney disease; N18.30 Chronic kidney disease, stage 3 unspecified; F70 Mild intellectual disabilities; I48.0 Paroxysmal atrial fibrillation; E87.6 Hypokalemia; B96.20 Unspecified Escherichia coli [E. coli] as the cause of diseases classified elsewhere; I50.9 Heart failure, unspecified; Z20.822 Contact with and (suspected) exposure to COVID-19; F32.A Depression, unspecified; F41.9 Anxiety disorder, unspecified; E66.01 Morbid (severe) obesity due to excess calories; Z87.442 Personal history of urinary calculi; Z87.440 Personal history of urinary (tract) infections; Z91.048 Other nonmedicinal substance allergy status; Z79.82 Long term (current) use of aspirin; Z79.4 Long term (current) use of insulin; Z79.890 Hormone replacement therapy
CPT/HCPCS: A4314; C1751; C1892; J1650; J1815; J1940; J2543; J3370; J3480; J7030; J7040; J7050

== ENCOUNTER → 2022-05-09 | Outpatient (REF) | payer MEDICARE, MEDICAID ==
[~2022-05-09] MED LIST changes: +ELIQUIS 5MG PO; +LANTUS SOLOS100 U/ML SQ; +PACERONE400 MG PO; +ZOSYN 3 GM-0.371 PD1 IV
[2022-05-09 16:05] LABS: CALCIUM 8.3 mg/dL (8.4-10.2); CREATININE, serum 1.98 mg/dL (0.57-1.11); POTASSIUM 4.3 mmol/L (3.5-4.5)
== END ==
LOC: ZCOL.LAB 15:59
PROVIDERS: Family Medicine
DX: E78.2 Mixed hyperlipidemia (principal)

== ENCOUNTER → 2022-07-13 | Outpatient (REF) | payer MEDICARE, MEDICAID | LOC: ZCOL.LAB 14:33 | DX: L89.892 Pressure ulcer of other site, stage 2 (principal) ==

== ENCOUNTER → 2022-11-25 | Outpatient (CLI) | payer MEDICARE, MEDICAID ==
[2022-11-25 11:03] LABS: ALBUMIN 2.6 gm/dL (3.4-4.8); BILIRUBIN,TOTAL 0.5 mg/dL (0.2-1.2); CALCIUM 8.6 mg/dL (8.4-10.2); CREATININE, serum 1.75 mg/dL (0.57-1.11); POTASSIUM 4.1 mmol/L (3.5-4.5); TOTAL PROTEIN 6.2 gm/dL (6.2-8.1)
== END ==
LOC: ZCOL.LAB 10:22
PROVIDERS: Family Medicine
DX: I12.9 Hypertensive chronic kidney disease with stage 1 through stage 4 chronic kidney disease, or unspecified chronic kidney disease (principal)

== ENCOUNTER → 2023-01-15 | Outpatient (CLI) | payer MEDICARE, MEDICAID ==
[2023-01-15 11:15] LABS: BASO # 0.1 K/mm3 (0.0-0.2); BASO % 0.8 % (0.0-2.0); EOS # 0.3 K/mm3 (0.0-0.7); GRAN # 5.4 K/mm3 (1.4-6.5); GRAN % 65.3 % (42.2-75.2); HEMATOCRIT 38.2 % (37.0-47.0); HEMOGLOBIN 12.3 g/dl (12.5-16.0); LYMPH # 1.9 K/mm3 (1.2-3.4); LYMPH % 23.3 % (20.0-51.0); MEAN CELL VOLUME 91 fl (80.0-100.0); MEAN CORPUSCULAR HEMOGLOBIN 29 pg (27-31); MEAN CORPUSCULAR HGB CONC 32 g/dl (33.0-37.0); MEAN PLATELET VOLUME 10.6 fl (7.4-10.4); MONO # 0.6 K/mm3 (0.1-0.6); MONO % 7.1 % (1.7-9.3); PLATELET COUNT 232 K/mm3 (130-400); RED BLOOD COUNT 4.18 M/mm3 (4.10-5.30); REDCELL DISTRIBUTION WIDTH-CV 13.2 % (11.5-14.5)
[2023-01-15 11:25] LABS: ALBUMIN 2.6 gm/dL (3.4-4.8); BILIRUBIN,TOTAL 0.7 mg/dL (0.2-1.2); CALCIUM 8.1 mg/dL (8.4-10.2); CREATININE, serum 2.07 mg/dL (0.57-1.11); POTASSIUM 4.4 mmol/L (3.5-4.5); TOTAL PROTEIN 6.1 gm/dL (6.2-8.1)
== END ==
LOC: ZCOL.LAB 11:02
PROVIDERS: Family Medicine
DX: I12.9 Hypertensive chronic kidney disease with stage 1 through stage 4 chronic kidney disease, or unspecified chronic kidney disease (principal); E78.2 Mixed hyperlipidemia

== ENCOUNTER → 2023-02-13 | Outpatient (CLI) | payer MEDICARE, MEDICAID ==
[2023-02-13 12:26] LABS: BASO # 0.1 K/mm3 (0.0-0.2); BASO % 0.6 % (0.0-2.0); EOS # 0.2 K/mm3 (0.0-0.7); EOS % 2.4 % (0.0-4.0); GRAN % 68.8 % (42.2-75.2); HEMATOCRIT 38.7 % (37.0-47.0); HEMOGLOBIN 12.4 g/dl (12.5-16.0); LYMPH # 1.9 K/mm3 (1.2-3.4); LYMPH % 21.6 % (20.0-51.0); MEAN CELL VOLUME 91 fl (80.0-100.0); MEAN CORPUSCULAR HEMOGLOBIN 29 pg (27-31); MEAN CORPUSCULAR HGB CONC 32 g/dl (33.0-37.0); MEAN PLATELET VOLUME 11.3 fl (7.4-10.4); MONO # 0.5 K/mm3 (0.1-0.6); MONO % 6.1 % (1.7-9.3); PLATELET COUNT 223 K/mm3 (130-400); RED BLOOD COUNT 4.25 M/mm3 (4.10-5.30); REDCELL DISTRIBUTION WIDTH-CV 13.3 % (11.5-14.5)
[2023-02-13 12:41] LABS: ALBUMIN 2.6 gm/dL (3.4-4.8); BILIRUBIN,TOTAL 0.5 mg/dL (0.2-1.2); CALCIUM 8.3 mg/dL (8.4-10.2); CREATININE, serum 1.76 mg/dL (0.57-1.11); POTASSIUM 4.7 mmol/L (3.5-4.5); TOTAL PROTEIN 6.5 gm/dL (6.2-8.1)
[2023-02-13 13:04] LABS: THYROID STIMULATING HORMONE 4.956 uIU/mL (0.350-4.940)
== END ==
LOC: ZCOL.LAB 12:17
PROVIDERS: Family Medicine
DX: I12.9 Hypertensive chronic kidney disease with stage 1 through stage 4 chronic kidney disease, or unspecified chronic kidney disease (principal); E11.22 Type 2 diabetes mellitus with diabetic chronic kidney disease; N18.32 Chronic kidney disease, stage 3b; D63.1 Anemia in chronic kidney disease; R60.0 Localized edema

== ENCOUNTER → 2023-02-25 | Outpatient (CLI) | payer MEDICARE, MEDICAID | LOC: ZCOL.LAB 11:23 | DX: Z01.89 Encounter for other specified special examinations (principal) ==

== ENCOUNTER → 2023-10-03 | Outpatient (CLI) | payer MEDICARE, MEDICAID ==
[2023-10-03 14:24] LABS: CALCIUM 9.1 mg/dL (8.4-10.2); CREATININE, serum 1.84 mg/dL (0.57-1.11); POTASSIUM 4.5 mEq/L (3.5-4.5)
[2023-10-03 14:26] LABS: BASO # 0.1 K/mm3 (0.0-0.2); BASO % 0.9 % (0.0-2.0); EOS # 0.2 K/mm3 (0.0-0.7); EOS % 3.8 % (0.0-4.0); GRAN # 3.4 K/mm3 (1.4-6.5); GRAN % 61.4 % (42.2-75.2); HEMATOCRIT 42.5 % (37.0-47.0); HEMOGLOBIN 13.4 g/dl (12.5-16.0); LYMPH # 1.3 K/mm3 (1.2-3.4); LYMPH % 23.5 % (20.0-51.0); MEAN CELL VOLUME 93 fl (80.0-100.0); MEAN CORPUSCULAR HEMOGLOBIN 29 pg (27-31); MEAN CORPUSCULAR HGB CONC 32 g/dl (33.0-37.0); MEAN PLATELET VOLUME 11.7 fl (7.4-10.4); MONO # 0.6 K/mm3 (0.1-0.6); MONO % 9.9 % (1.7-9.3); PLATELET COUNT 205 K/mm3 (130-400); RED BLOOD COUNT 4.57 M/mm3 (4.10-5.30); REDCELL DISTRIBUTION WIDTH-CV 13.2 % (11.5-14.5)
== END ==
LOC: COL.LAB 13:35
PROVIDERS: Family Medicine
DX: E78.2 Mixed hyperlipidemia (principal); D64.9 Anemia, unspecified

== ENCOUNTER → 2024-01-10 | Outpatient (REF) | payer MEDICARE, MEDICAID ==
[2024-01-10 14:39] LABS: COLLECTION METHOD CATHETER
[2024-01-10 14:51] LABS: URINE APPEARANCE TURBID (CLEAR/HAZY); URINE BLOOD 3+ (NEGATIVE); URINE COLOR ORANGE (YELLOW); URINE GLUCOSE 2+ (NEGATIVE); URINE KETONE NEGATIVE (NEGATIVE); URINE NITRATE POSITIVE (NEGATIVE); URINE PROTEIN(semi-quant) 2+ (NEGATIVE); URINE UROBILINOGEN 0.2 E.U/dL (0.2-1.0)
== END ==
LOC: ZCOL.LAB 13:55
PROVIDERS: Nurse Practitioner Family
DX: N39.0 Urinary tract infection, site not specified (principal)